=== PATIENT | male | born 1990 | race Caucasian/White ===

== ENCOUNTER 2024-06-30 10:07 | Emergency (ER) | payer BC ==
[2024-06-30] MEDS: ceFAZolin 2 GM Vial IVPUSH ONE (10:24)
[2024-06-30] MEDS: Ondansetron 4 MG/2 ML SDV IVPUSH ONE (10:26)
[2024-06-30] MEDS: Diphtheria,Pertussis(Acell),Tetanus Vaccine 0.5 ML Syringe IM ONE (10:26)
[2024-06-30] MEDS: Morphine 2 MG/ML SYRINGE IVPUSH ONE (10:26)
[2024-06-30 10:29] LABS: BASOPHILS PERCENT AUTO 0.3 % (0.0-1.0); EOSINOPHILS PERCENT AUTO 1.5 % (1.0-3.0); LYMPHOCYTES PERCENT AUTO 31.7 % (20.5-50.1); MEAN CORPUSCULAR HEMOGLOBIN 29.2 pg (27.0-34.0); MEAN CORPUSCULAR HGB CONC 33.3 g/dL (33.0-35.0); MEAN CORPUSCULAR VOLUME 87.5 fL (80-100); MONOCYTES PERCENT AUTO 10.4 % (2-8); NEUTROPHILS PERCENT AUTO 56.1 % (42.2-75.2); PLATELET COUNT,PLT 300 10^3/uL (150-450); WHITE BLOOD CELL COUNT,WBC 5.9 10^3/uL (5.0-10.0)
[2024-06-30 10:44] LABS: PROTHROMBIN TIME 10.6 SEC (9.0-12.0)
[2024-06-30 10:49] LABS: A/G RATIO 1.2; ALBUMIN 4.2 g/dL (3.4-5.0); BILIRUBIN TOTAL 0.4 mg/dL (0.2-1.0); BUN/CREATININE RATIO 13.6 (No establ ref range); CALCIUM 9.1 mg/dL (8.5-10.1); CREATININE 1.1 mg/dL (0.70-1.30); EST CRCL DRUG DOSING (CG) 102.68 mL/min; PROTEIN TOTAL,TP 7.8 g/dL (6.4-8.2)
[2024-06-30] MEDS: Acetaminophen 500 MG Tab PO ONE (11:35)
[2024-06-30] MEDS: Ketorolac 30 MG/ML SDV IVPUSH ONE (11:36)
[2024-06-30] MEDS: Lidocaine 2% 20 ML MDV INFILT ONE (11:41)
[2024-06-30] MEDS: Bupivacaine 0.25% 10 ML SDV INJECT ONE (11:41)
== END 2024-06-30 11:45 ==
LOC: DL.ED 10:07
DX: S62.623B Displaced fracture of middle phalanx of left middle finger, initial encounter for open fracture (principal); Z23 Encounter for immunization; W23.0XXA Caught, crushed, jammed, or pinched between moving objects, initial encounter
CPT/HCPCS: 36415; 73130-LT; 80053; 85025; 85610; 90471; 90715; 96374; 96375; 99284-25; 99285; A9270-GY; J0665; J0690; J1885; J2270; J2405; J3490